=== PATIENT | female | born 1980 ===

== ENCOUNTER 2016-12-17 16:28 | Emergency (ER) | payer OTHER ==
[2016-12-17 16:39] VITALS: BP 117/74; PULSE 68; RESP 20; TEMP 98.3; O2SAT 97
--- NOTE | 2016-12-17 16:44 | ED PDOC ---
HPI: Back Time Seen by Provider: 12/17/16 16:38 Chief Complaint (Nursing): Back Pain Chief Complaint (Provider): Back Pain History Per: Patient Additional Complaint(s): 36 yo female, no PMH, presents to ED with complaints of 3 days of epigastric abdominal pain, nausea and vomiting. pt also noted mid-lower back pain. No UTI like complaints. Past Medical History Reviewed: Nursing Documentation, Vital Signs Vital Signs: Last Vital Signs Temp 98.3 F 12/17/16 16:36 Pulse 68 12/17/16 16:36 Resp 20 12/17/16 16:36 BP 117/74 12/17/16 16:36 Pulse Ox 97 12/17/16 16:36 - Medical History PMH: No Chronic Diseases - Surgical History Surgical History: - Family History Family History: States: Unknown Family Hx - Living Arrangements Living Arrangements: With Family - Social History Current smoker - smoking cessation education provided: No Alcohol: None Drugs: Denies - Home Medications Home Medications: Ambulatory Orders Medication Instructions Recorded Ciprofloxacin/Ciprofloxa HCl 500 mg PO Q12 #14 tab 05/04/14 [Ciprofloxacin] Dicyclomine [Bentyl] 20 mg PO Q12 PRN #20 tab 05/04/14 Docusate Sodium [Colace] 100 mg PO Q12 #20 sgl 05/04/14 Naproxen 500 mg PO BID PRN #20 tab 11/24/15 Nitrofurantoin Macrocrystals 100 mg PO BID #13 cap 11/24/15 [Macrobid] Cyclobenzaprine [Cyclobenzaprine 10 mg PO TID #20 tab 12/17/16 HCl] Esomeprazole Magnesium [Nexium] 20 mg PO DAILY #20 ecc 12/17/16 - Allergies Allergies/Adverse Reactions: Allergies Allergy/AdvReac Type Severity Reaction Status Date / Time No Known Allergies Allergy Verified 05/04/14 18:57 Review of Systems ROS Statement: Except As Marked, All Systems Reviewed And Found Negative Gastrointestinal: Positive for: Nausea, Vomiting, Abdominal Pain Musculoskeletal: Positive for: Back Pain Physical Exam - Reviewed Nursing Documentation Reviewed: Yes Vital Signs Reviewed: Yes - Physical Exam Appears: Positive for: Well, Non-toxic, No Acute Distress Head Exam: Positive for: ATRAUMATIC, NORMAL INSPECTION, NORMOCEPHALIC Skin: Positive for: Normal Color, Warm, DRY Eye Exam: Positive for: EOMI, Normal appearance, PERRL ENT: Positive for: Normal ENT Inspection Neck: Positive for: Normal, Painless ROM Cardiovascular/Chest: Positive for: Regular Rate, Rhythm Respiratory: Positive for: CNT, Normal Breath Sounds Gastrointestinal/Abdominal: Positive for: Bowel Sounds, Soft, Tenderness ( epigastric abdominal pain) Back: Positive for: Normal Inspection. Negative for: L CVA Tenderness, R CVA Tenderness, Vertebral Tenderness Extremity: Positive for: Normal ROM Neurologic/Psych: Positive for: Alert, Oriented - Laboratory Results Result Diagrams: 12/17/16 16:55 12/17/16 16:55 - ECG O2 Sat by Pulse Oximetry: 97 Medical Decision Making Medical Decision Making: IV access established and treatment initiated with IVF, Zofran Pepcid and GI cocktail Labs resulted and reviewed with Pt who demonstrated full understanding. Pt doing well on re-eval, no complaints of pain, nausea or vomiting. Stable for discharge on re-eval. Disposition - Clinical Impression Clinical Impression: Back pain, Gastritis - Patient ED Disposition Is Patient to be Admitted: No - Disposition Disposition: Routine/Home Disposition Time: 20:30 Condition: STABLE Prescriptions: Cyclobenzaprine [Cyclobenzaprine HCl] 10 mg PO TID #20 tab Esomeprazole Magnesium [Nexium] 20 mg PO DAILY #20 ecc Instructions: Gastritis (ED), Back Pain (ED) Forms: [facility] (Bots[place]an) - POA Present On Arrival: None
[2016-12-17] MEDS ORDERED: Sodium Chloride 0.9% 1,000 ML IV STA (17:04)
[2016-12-17 17:23] LABS: BASO # 0.1 K/uL (0.0-0.2); BASO % 0.8 % (0.0-2.0); EOS # 0.3 K/uL (0.0-0.7); EOS % 2.6 % (0.0-4.0); LYMPH # 2.9 K/uL (1.0-4.3); LYMPH % 29.6 % (20.0-40.0); MEAN CORPUSCULAR HEMOGLOBIN 25.8 pg (27.0-31.0); MEAN CORPUSCULAR HGB CONC 32.2 g/dL (33.0-37.0); MEAN PLATELET VOLUME 8.7 fl (7.2-11.7); MONO # 0.5 K/uL (0.0-0.8); MONO % 5.4 % (0.0-10.0); NEUT % 61.6 % (50.0-75.0); RED CELL DISTRIBUTION WIDTH 15.2 % (11.5-14.5); WHITE BLOOD COUNT 9.7 K/uL (4.8-10.8)
[2016-12-17 17:30] LABS: MEAN CELL VOLUME 80.2 fl (81.0-99.0)
[2016-12-17 17:34] LABS: RBC URINE 3 /hpf (0-3); URINE BILIRUBIN NEGATIVE (NEGATIVE); URINE BLOOD NEGATIVE (NEGATIVE); URINE COLOR YELLOW (YELLOW); URINE GLUCOSE (UA) NEG (Normal); URINE KETONE NEGATIVE (NEGATIVE); URINE LEUKOCYTE ESTERASE NEG Leu/uL (Negative); URINE PROTEIN NEGATIVE (NEGATIVE); URINE UROBILINOGEN 0.2-1.0 mg/dL (0.2-1.0); WBC URINE 4 /hpf (0-5)
[2016-12-17 17:37] LABS: ALB/GLOB RATIO 1.4 (1.0-2.1); ALKALINE PHOSPHATASE 175 U/L (38-126); ALT/SGPT 28 U/L (9-52); AMYLASE 78 U/L (30-110); AST/SGOT 26 U/L (14-36); BILIRUBIN,TOTAL 0.3 mg/dl (0.2-1.3); BLOOD UREA NITROGEN 18 mg/dl (7-17); CALCIUM 9.2 mg/dL (8.4-10.2); CARBON DIOXIDE 25 mmol/L (22-30); CHLORIDE 106 mmol/L (98-107); GFR AFRICAN-AMERICAN > 60; GLUCOSE,RANDOM 100 mg/dL (65-105); LIPASE 99 U/L (23-300); POTASSIUM 3.9 MMOL/L (3.6-5.0); SODIUM 142 mmol/l (132-148); TOTAL PROTEIN 7.4 G/DL (6.3-8.2)
[2016-12-17] MEDS ORDERED: Alum-Mag Hydrox-Simethicone Susp (30 mL) PO ONE (18:15)
--- NOTE | 2016-12-18 09:06 | RAD ---
HISTORY: COMPARISON: 03/22/2012. TECHNIQUE: Chest PA and lateral FINDINGS: LINES AND TUBES: None. LUNG AND PLEURA: There are low lung volumes which may be related to poor inspiratory effort. There are reticular opacities in both lower lobes. HEART AND MEDIASTINUM: The heart is not enlarged. The hilar and mediastinal contours are within normal limits. SKELETAL STRUCTURES: The bony structures are within normal limits for the patient's age. VISUALIZED UPPER ABDOMEN: Normal. OTHER FINDINGS: None. IMPRESSION: Radicular opacities in both lower lobes could be related to venous congestion or interstitial edema/pneumonitis.
== END 2016-12-17 20:20 | disposition home or self-care (01) ==
LOC: H.ER 16:28
DX: K29.70 Gastritis, unspecified, without bleeding (principal)
CPT/HCPCS: 71020; 80053; 81003; 81025; 82150; 83690; 85025; 96361; 96374; 96375; 99282; J1885; J2405; J7040

== ENCOUNTER 2017-06-07 21:20 | Emergency (ER) | payer OTHER ==
[2017-06-07 22:20] VITALS: BP 114/61; PULSE 82; RESP 16; O2SAT 99
--- NOTE | 2017-06-07 23:38 | ED PDOC ---
HPI: Abdomen Time Seen by Provider: 06/07/17 23:16 Chief Complaint (Nursing): Abdominal Pain Chief Complaint (Provider): abdominal pain History Per: Patient History/Exam Limitations: no limitations Onset/Duration Of Symptoms: Days (4) Current Symptoms Are (Timing): Still Present Location Of Pain/Discomfort: LLQ, Suprapubic Quality Of Discomfort: Sharp Last Bowel Movement: Today Additional History Per: Patient Additional Complaint(s): 36 y/o female presents with lower abdominal pain x 4 days. Associated fever 101 today, with increased urine frequency and 4 epsiodes of loose stool. Denies cough, congestion, vomiting, chest pain, shortness of breath, palpitations, vaginal bleeding/discharge, recent travel, sick contacts. Past Medical History Reviewed: Historical Data, Nursing Documentation, Vital Signs Vital Signs: Last Vital Signs Temp 98.3 F 06/08/17 03:23 Pulse 82 06/07/17 22:18 Resp 16 06/07/17 22:18 BP 114/61 06/07/17 22:18 Pulse Ox 99 06/08/17 02:46 - Medical History PMH: No Chronic Diseases - Surgical History Surgical History: Denies: Appendectomy, Cholecystectomy - Family History Family History: States: Unknown Family Hx - Home Medications Home Medications: Ambulatory Orders Medication Instructions Recorded Ciprofloxacin/Ciprofloxa HCl 500 mg PO Q12 #14 tab 05/04/14 [Ciprofloxacin] Dicyclomine [Bentyl] 20 mg PO Q12 PRN #20 tab 05/04/14 Docusate Sodium [Colace] 100 mg PO Q12 #20 sgl 05/04/14 Naproxen 500 mg PO BID PRN #20 tab 11/24/15 Nitrofurantoin Macrocrystals 100 mg PO BID #13 cap 11/24/15 [Macrobid] Cyclobenzaprine [Cyclobenzaprine 10 mg PO TID #20 tab 12/17/16 HCl] Esomeprazole Magnesium [Nexium] 20 mg PO DAILY #20 ecc 12/17/16 Acetaminophen [Acetaminophen Extra 2 tab PO Q6 PRN #24 tablet 02/23/17 Strength] Promethazine/Codeine 5 ml PO Q12 PRN #100 ml 02/23/17 [Codeine/Promethazine 10 MG/5 Ml-6.25 MG/5 Ml] Pseudoephedrine [Sudafed Tab] 60 mg PO Q6 PRN #24 tab 02/23/17 Ranitidine HCl [Zantac] 150 mg PO DAILY #10 tablet 02/23/17 - Allergies Allergies/Adverse Reactions: Allergies Allergy/AdvReac Type Severity Reaction Status Date / Time No Known Allergies Allergy Verified 05/04/14 18:57 Review of Systems ROS Statement: Except As Marked, All Systems Reviewed And Found Negative Constitutional: Positive for: Fever Gastrointestinal: Positive for: Abdominal Pain, Diarrhea Genitourinary Female: Positive for: Dysuria Physical Exam - Reviewed Nursing Documentation Reviewed: Yes Vital Signs Reviewed: Yes - Physical Exam Appears: Positive for: Well, Non-toxic, No Acute Distress Head Exam: Positive for: ATRAUMATIC, NORMAL INSPECTION, NORMOCEPHALIC Skin: Positive for: Normal Color Eye Exam: Positive for: Normal appearance ENT: Positive for: Normal ENT Inspection Cardiovascular/Chest: Positive for: Regular Rate, Rhythm Respiratory: Positive for: Normal Breath Sounds Gastrointestinal/Abdominal: Positive for: Bowel Sounds, Soft, Tenderness ( suprapubic, LLQ, left flank) Back: Positive for: Normal Inspection Extremity: Positive for: Normal ROM Neurologic/Psych: Positive for: Alert, Oriented - Laboratory Results Result Diagrams: 06/08/17 00:12 06/08/17 00:12 - ECG O2 Sat by Pulse Oximetry: 99 - Progress ED Course And Treament: Patient with +preg; states LMP 05/07/17 will order labs, TV u/s EXAM: US First Trimester, Transabdominal US , Transvaginal CLINICAL HISTORY: 36 years old, female; Pain; Other: Pelvic; Gestational age or lmp: 05/07/17; Prior surgery; Surgery date: 6+ months; Surgery type: ; Additional info: Pelvic pain, + preg test TECHNIQUE: Real-time transabdominal and transvaginal obstetrical ultrasound of the maternal pelvis and a first trimester with image documentation. Transvaginal imaging was used for better evaluation of the fetus and adnexa. Grayscale, color and spectral pulse Doppler images are submitted.A duplex/doppler ultrasound was performed specifically BOTH COLOR FLOW AND spectral Doppler analysis (waveforms) were performed and interpreted. COMPARISON: No relevant prior studies available. FINDINGS: Gestation: No IUP is seen. Uterus/cervix: The cervix is closed and measures 4.2 cm. Nabothian cysts within the cervix. The uterus is anteverted and measures 13.2 x 4.2 x 5.3 cm. The endometrial stripe measures 16 mm. Ovaries: The left ovary measures 2.9 x 1.4 x 2.9 cm. Duplex assessment demonstrates presence of color Doppler signal and spectral Doppler waveform in left ovary. The right ovary measures 2.8 x 1.1 x 2.6 cm. Duplex assessment demonstrates presence of color Doppler signal and spectral Doppler waveform in right ovary. No mass. Free fluid: No free fluid. IMPRESSION: 1.No demonstrable intrauterine or extrauterine . With a positive test, the differential diagnosis includes a recent spontaneous and very early intrauterine or extra uterine . Careful follow-up including correlation with beta HCG levels is recommended. The possibility of ectopic cannot be excluded at this time. Patient educated on findings, advised 48 hour follow up. Tylenol PRN pain. Return precautions given. Disposition - Clinical Impression Clinical Impression: Abdominal pain during - Patient ED Disposition Is Patient to be Admitted: No Counseled Patient/Family Regarding: Studies Performed, Diagnosis, Need For Followup - Disposition [facility] [Outside] Disposition: Routine/Home Disposition Time: 03:51 Condition: IMPROVED Instructions: Abdominal Pain in (ED) Forms: [facility] (Nigerian)
[2017-06-08 00:11] LABS: VENOUS BLOOD GAS BASE EXCESS -1.3 mmol/L (0.0-2.0); VENOUS BLOOD GAS PCO2 40 mmHg (40-60); VENOUS BLOOD GAS PO2 20 mm/Hg (30-55); VENOUS BLOOD PH 7.38 (7.32-7.43)
[2017-06-08 00:19] LABS: BASO % 0.3 % (0.0-2.0); EOS # 0.4 K/uL (0.0-0.7); EOS % 3.5 % (0.0-4.0); HEMOGLOBIN 10.6 g/dL (12.0-16.0); LYMPH # 3.6 K/uL (1.0-4.3); LYMPH % 34.5 % (20.0-40.0); MEAN CELL VOLUME 80.5 fl (81.0-99.0); MEAN CORPUSCULAR HEMOGLOBIN 25.4 pg (27.0-31.0); MEAN CORPUSCULAR HGB CONC 31.5 g/dL (33.0-37.0); MEAN PLATELET VOLUME 8.3 fl (7.2-11.7); MONO # 0.7 K/uL (0.0-0.8); MONO % 6.4 % (0.0-10.0); NEUT # 5.8 K/uL (1.8-7.0); NEUT % 55.3 % (50.0-75.0); NRBC % 0.2 % (0.0-0.0); RBC 4.17 Mil/uL (3.80-5.20); RED CELL DISTRIBUTION WIDTH 15.3 % (11.5-14.5); WHITE BLOOD COUNT 10.6 K/uL (4.8-10.8)
[2017-06-08 00:26] LABS: ALB/GLOB RATIO 1.4 (1.0-2.1); ALBUMIN 4.5 g/dL (3.5-5.0); ALT/SGPT 37 U/L (9-52); AST/SGOT 21 U/L (14-36); BLOOD UREA NITROGEN 13 mg/dl (7-17); CALCIUM 9.5 mg/dL (8.4-10.2); GFR AFRICAN-AMERICAN > 60; GFR NON-AFRICAN AMERICAN > 60
--- NOTE | 2017-06-08 01:31 | US ---
EXAM: US First Trimester, Transabdominal US , Transvaginal CLINICAL HISTORY: 36 years old, female; Pain; Other: Pelvic; Gestational age or lmp: 05/07/17; Prior surgery; Surgery date: 6+ months; Surgery type: ; Additional info: Pelvic pain, + preg test TECHNIQUE: Real-time transabdominal and transvaginal obstetrical ultrasound of the maternal pelvis and a first trimester with image documentation. Transvaginal imaging was used for better evaluation of the fetus and adnexa. Grayscale, color and spectral pulse Doppler images are submitted.A duplex/doppler ultrasound was performed specifically BOTH COLOR FLOW AND spectral Doppler analysis (waveforms) were performed and interpreted. COMPARISON: No relevant prior studies available. FINDINGS: Gestation: No IUP is seen. Uterus/cervix: The cervix is closed and measures 4.2 cm. Nabothian cysts within the cervix. The uterus is anteverted and measures 13.2 x 4.2 x 5.3 cm. The endometrial stripe measures 16 mm. Ovaries: The left ovary measures 2.9 x 1.4 x 2.9 cm. Duplex assessment demonstrates presence of color Doppler signal and spectral Doppler waveform in left ovary. The right ovary measures 2.8 x 1.1 x 2.6 cm. Duplex assessment demonstrates presence of color Doppler signal and spectral Doppler waveform in right ovary. No mass. Free fluid: No free fluid. IMPRESSION: 1.No demonstrable intrauterine or extrauterine . With a positive test, the differential diagnosis includes a recent spontaneous and very early intrauterine or extra uterine . Careful follow-up including correlation with beta HCG levels is recommended. The possibility of ectopic cannot be excluded at this time.
[2017-06-08 03:23] VITALS: TEMP 98.3
[2017-06-08 03:27] LABS: URINE BILIRUBIN NEGATIVE (NEGATIVE); URINE BLOOD NEGATIVE (NEGATIVE); URINE CLARITY Clear (Clear); URINE COLOR LIGHT YELLOW (YELLOW); URINE GLUCOSE (UA) NEGATIVE (Normal); URINE LEUKOCYTE ESTERASE NEGATIVE Leu/uL (Negative); URINE NITRATE NEGATIVE (NEGATIVE); URINE PROTEIN NEGATIVE (NEGATIVE); URINE UROBILINOGEN 0.2 mg/dL (0.2-1.0)
== END 2017-06-08 04:10 | disposition home or self-care (01) ==
LOC: H.ER 21:20
DX: O26.899 Other specified pregnancy related conditions, unspecified trimester (principal)

== ENCOUNTER 2017-11-01 04:19 | Emergency (ER) | payer SELFPAY ==
[2017-11-01 04:33] VITALS: BMI 31.7
[2017-11-01 04:48] VITALS: RESP 17
--- NOTE | 2017-11-01 05:03 | ED PDOC ---
HPI: Back History Per: Patient History/Exam Limitations: no limitations Onset/Duration Of Symptoms: Days Current Symptoms Are (Timing): Still Present Quality Of Discomfort: Pressure Previous Symptoms: Back Pain Additional Complaint(s): Hx of back pain presenting with back pain, states she's had it for 2 weeks, worsened tonight. Denies trauma or heavy lifting. No numbness, weakness, tingling, loss of function, urinary/bowel changes. Pressure like in middle of back on both sides in center. Past Medical History Reviewed: Historical Data, Nursing Documentation, Vital Signs Vital Signs: Last Vital Signs Temp 97.6 F 11/01/17 04:45 Pulse 72 11/01/17 04:45 Resp 17 11/01/17 04:45 BP 115/83 11/01/17 04:45 Pulse Ox 99 11/01/17 04:45 - Medical History PMH: No Chronic Diseases - Surgical History Surgical History: Denies: Appendectomy, Cholecystectomy - Family History Family History: States: Unknown Family Hx - Home Medications Home Medications: Ambulatory Orders Medication Instructions Recorded Ciprofloxacin/Ciprofloxa HCl 500 mg PO Q12 #14 tab 05/04/14 [Ciprofloxacin] Dicyclomine [Bentyl] 20 mg PO Q12 PRN #20 tab 05/04/14 Docusate Sodium [Colace] 100 mg PO Q12 #20 sgl 05/04/14 Naproxen 500 mg PO BID PRN #20 tab 11/24/15 Nitrofurantoin Macrocrystals 100 mg PO BID #13 cap 11/24/15 [Macrobid] Cyclobenzaprine [Cyclobenzaprine 10 mg PO TID #20 tab 12/17/16 HCl] Esomeprazole Magnesium [Nexium] 20 mg PO DAILY #20 ecc 12/17/16 Acetaminophen [Acetaminophen Extra 2 tab PO Q6 PRN #24 tablet 02/23/17 Strength] Promethazine/Codeine 5 ml PO Q12 PRN #100 ml 02/23/17 [Codeine/Promethazine 10 MG/5 Ml-6.25 MG/5 Ml] Pseudoephedrine [Sudafed Tab] 60 mg PO Q6 PRN #24 tab 02/23/17 Ranitidine HCl [Zantac] 150 mg PO DAILY #10 tablet 02/23/17 - Allergies Allergies/Adverse Reactions: Allergies Allergy/AdvReac Type Severity Reaction Status Date / Time No Known Allergies Allergy Verified 05/04/14 18:57 Review of Systems ROS Statement: Except As Marked, All Systems Reviewed And Found Negative Genitourinary Female: Negative for: Dysuria, Frequency Musculoskeletal: Positive for: Back Pain Physical Exam - Reviewed Nursing Documentation Reviewed: Yes Vital Signs Reviewed: Yes - Physical Exam Appears: Positive for: Well, Non-toxic, No Acute Distress Head Exam: Positive for: ATRAUMATIC, NORMAL INSPECTION, NORMOCEPHALIC Skin: Positive for: Normal Color, Warm, DRY Eye Exam: Positive for: EOMI, Normal appearance, PERRL ENT: Positive for: Normal ENT Inspection Neck: Positive for: Normal, Painless ROM Cardiovascular/Chest: Positive for: Regular Rate, Rhythm Respiratory: Positive for: CNT, Normal Breath Sounds Gastrointestinal/Abdominal: Positive for: Normal Exam, Soft Back: Positive for: Normal Inspection, Muscle Spasm (Paravertebral musculature tenderness). Negative for: L CVA Tenderness, R CVA Tenderness, Vertebral Tenderness Extremity: Positive for: Normal ROM Neurologic/Psych: Positive for: Alert, mirror framer II-XII, Oriented, Gait (normal). Negative for: Motor/Sensory Deficits Front/Back of Body: 1 - Location of pain - ECG O2 Sat by Pulse Oximetry: 99 Pulse Ox Interpretation: Normal Medical Decision Making Medical Decision MakinAM Patient presenting with musculoskeletal back pain Not concerned for cord impingement syndromes, AAA, or any other acute pathology Will provide NSAID and muscle relaxant and re-eval 6AM Patient still in pain, percocet and prednisone ordered Xrays orderd 7AM Xrays do not demonstrate any acute abnormality Patient to be endorsed to Dr. Vang for re-eval Disposition - Clinical Impression Clinical Impression: Mid back pain - Patient ED Disposition Is Patient to be Admitted: Transfer of Care - Disposition Referrals: [facility] [Outside] Disposition: Transfer of Care Disposition Time: 07:00 Condition: STABLE Patient Signed Over To: Danica Vang Handoff Comments: pending re-eval
[2017-11-01 05:43] LABS: SQUAMOUS EPITHIAL 1 /hpf (0-5); URINE BILIRUBIN NEGATIVE (NEGATIVE); URINE BLOOD NEGATIVE (NEGATIVE); URINE CLARITY CLEAR (Clear); URINE COLOR AMBER (YELLOW); URINE GLUCOSE (UA) NEG (Normal); URINE LEUKOCYTE ESTERASE NEG Leu/uL (Negative); URINE PROTEIN NEGATIVE (NEGATIVE); URINE UROBILINOGEN 0.2-1.0 mg/dL (0.2-1.0)
[2017-11-01] MEDS ORDERED: Oxycodone/Acetaminophen 5/325 mg Tab PO STA (06:09)
--- NOTE | 2017-11-01 07:13 | ED PDOC ---
- ECG O2 Sat by Pulse Oximetry: 99 - Progress Re-evaluation Time: 08:15 Condition: Improving,but remains with symptoms Medical Decision Making Medical Decision Making: Received patient endorsement from Dr. Cadena. Patient presented for back pain for 2 weeks that required multiple types of pain meds. h/o kidney stones remotely. no fever. urine dip positive only for nitrites. 8.15a - patient is feeling better. She is ready for discharge with prescriptions. Disposition Doctor Will See Patient In The: Office Counseled Patient/Family Regarding: Diagnosis, Need For Followup, Rx Given - Clinical Impression Clinical Impression: Acute back pain - POA Present On Arrival: None - Disposition Referrals: [facility] [Outside] Disposition: Routine/Home Disposition Time: 08:15 Condition: STABLE Prescriptions: Acetaminophen [Tylenol 325mg tab] 650 mg PO Q6H #50 tab Cyclobenzaprine [Cyclobenzaprine HCl] 10 mg PO TID #21 tab Lidocaine 5% [Lidoderm] 1 patch TD DAILY #10 patch Naproxen [Naprosyn] 500 mg PO BID PRN #20 tablet PRN Reason: Pain, Moderate (4-7) Instructions: Muscle Spasms (DC) Forms: [facility] (Thai) Print Language: CAMBODIAN
--- NOTE | 2017-11-01 08:24 | RAD ---
Date of service: 11/01/2017 PROCEDURE: Radiographs of the Lumbar Spine. HISTORY: back pain COMPARISON: No prior. FINDINGS: BONES: Normal alignment. No listhesis. No fracture. DISC SPACES: Unremarkable. OTHER FINDINGS: None. IMPRESSION: Unremarkable radiographs of the lumbar spine.
--- NOTE | 2017-11-01 08:25 | RAD ---
Date of service: 11/01/2017 HISTORY: back pain COMPARISON: No prior. FINDINGS: BONES: Alignment maintained. No fracture. DISC SPACES: Normal. SOFT TISSUES: Normal. OTHER FINDINGS: None. IMPRESSION: Normal radiographs of the thoracic spine.
[2017-11-01 09:07] VITALS: BP 110/70; PULSE 74; TEMP 98; O2SAT 98
== END 2017-11-01 09:08 | disposition home or self-care (01) ==
LOC: H.ER 04:19
DX: M54.9 Dorsalgia, unspecified (principal); Z87.442 Personal history of urinary calculi
CPT/HCPCS: 72070; 72114; 81003; 96372; 99284; J1885